=== PATIENT | male | born 1995 | race Caucasian/White ===

== ENCOUNTER 2024-08-16 17:45 | Emergency (ER) | payer SELFPAY ==
[2024-08-16 17:59] VITALS: BP 116/74; PULSE 100; TEMP 36.6; O2SAT 98; BMI 30.9
[2024-08-16 18:08] VITALS: PULSE 98
--- NOTE | 2024-08-16 18:31 | ECG_ITS ---
The 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
[2024-08-16 20:34] VITALS: O2SAT 96
[2024-08-16 20:35] VITALS: BP 126/74; PULSE 101; TEMP 37.2; O2SAT 96
--- NOTE | 2024-08-16 20:36 | ED_ITS ---
HPI - Chest Pain General Chief Complaint: Chest Pain Stated Complaint: chest pain Time Seen by Provider: 08/16/24 19:14 Source: patient Mode of arrival: walk-in History of Present Illness HPI narrative: This 29-year-old male, non-smoker presents for evaluation of pain in both lower anterior rib cage areas that wraps around into his back associated with exertional dyspnea, he also has left upper quadrant abdominal pain. He has had 2 episodes of vomiting today. He has had some chills and sweats. He denies any sore throat or runny nose. Patient states that short of breath was so bad earlier today that he had to just stop walking. He denies any dizziness or syncope. He states he feels very fatigued. His bones ache. He has not had any diarrhea. Related Data Home Medications ?Medication ?Instructions ?Recorded ?Confirmed venlafaxine 75 mg capsule,extended mg PO 08/16/24 release 24 hr Allergies Allergy/AdvReac Type Severity Reaction Status Date / Time No Known Drug Allergies Allergy Verified 08/16/24 17:59 Review of Systems ROS Status of ROS 10 or more systems reviewed and unremark able except as noted in history and below PFSH PFSH Social History Little interest or pleasure in doing things: not at all Feeling down, depressed, or hopeless: not at all Exam Narrative Exam Narrative: Vital signs and Nursing Notes reviewed: Patient is afebrile with normal pulse, normal blood pressure, he is not hypoxic with pulse ox of 98% on room air General: Well-appearing adult male, he is awake, alert, oriented, no acute distress, lying comfortably on the stretcher HEENT: Normocephalic atraumatic, mucous membranes are moist and pink, eyes are clear, normal conjunctiva, vision is grossly intact, posterior pharynx is normal in appearance. Neck: Supple, no meningeal signs, Chest: Lungs are clear to auscultation with good air entry, there is no wheezing rhonchi or rales appreciated no accessory muscle use, patient is speaking in complete sentences-no chest wall tenderness to palpation CVS: Regular rate and rhythm S1-S2, no murmurs rubs or gallops, pulses are brisk and equal bilaterally ABD: Soft, nondistended, nontender, no rebound guarding or rigidity, bowel sounds are normal, no pulsatile masses appreciated Extremities: Moving all extremities, no lower extremity tenderness or swelling noted, negative Homans' sign, pulses are brisk and equal bilaterally Skin: Normal in appearance without rash,pallor, petechiae or purpura Neuro: No focal deficits Constitutional Vital Signs, click to edit/add: Last Vital Signs Temp 99.0 F 08/16/24 20:35 Pulse 101 H 08/16/24 20:35 Resp 20 08/16/24 20:35 BP 126/74 08/16/24 20:35 Pulse Ox 96 08/16/24 20:35 O2 Del Method Room Air 08/16/24 20:35 Course Vital Signs Vital signs: Vital Signs Temperature 97.8 F 08/16/24 17:59 Pulse Rate 100 H 08/16/24 17:59 Respiratory Rate 16 08/16/24 17:59 Blood Pressure 116/74 08/16/24 17:59 Pulse Oximetry 98 08/16/24 17:59 Oxygen Delivery Method Room Air 08/16/24 17:59 Temperature 99.0 F 08/16/24 20:35 Pulse Rate 101 H 08/16/24 20:35 Respiratory Rate 20 08/16/24 20:35 Blood Pressure 126/74 08/16/24 20:35 Pulse Oximetry 96 08/16/24 20:35 Oxygen Delivery Method Room Air 08/16/24 20:35 MDM - Chest Pain MDM Narrative Medical decision making narrative: This 29-year-old male, non-smoker presents for evaluation of bilateral lower rib cage pain which is worse on the right with exertional dyspnea, chills, nausea and 1 episode of vomiting starting earlier today. He denies any specific abdominal pain. He has not had any diarrhea. He denies any dizziness or syn cope. His temperature upon arrival was 99 with a pulse of 101, blood pressure was stable. His physical exam is benign. His lungs are clear, abdomen is soft and nontender. There is no flank pain or urinary symptoms. An IV is placed and he was medicated with IV fluids Toradol and Zofran. His pain improved somewhat and he was given an additional dose of Tylenol. His nausea resolved. An EKG do ne upon arrival is a sinus tachycardia at 101 bpm. Cardiac workup was ordered. He has a normal troponin and D-dimer. He has a normal white count and hemoglobin. Electrolytes are normal. He is negative for COVID-19 and influenza. Two-view chest x-ray was ordered and is reviewed by radiology and is negative for acute findings. The results of his labs and x-ray were discussed with him. Clinically I feel like he has a flulike illness/viral syndrome with bodyaches, fatigue, shortness of breath and nausea with 1 episode of vomiting. This was discussed with him. He will be discharged home with 2 [place] to help him sleep due to his body aches at this time and a dose of Zofran and a prescription for Zofran and ibuprofen as well as a note for work for the next several days. He was encouraged drink plenty of fluids and return to the emergency department for worsening symptoms or any concerns. Medical Records Data Medical records narrative: [place] [address] XRay Report Signed Patient: FREDIS ZACARIAS MR#: [id number] : 1995 Acct:[id number] Age/Sex: 29 / M ADM Date: 08/16/24 Loc: ER Attending Dr: Ordering Physician: Aileen Alfaro Date of Service: 08/16/24 Procedure(s): XR chest 2V Accession Number(s): [id number] cc: VANDANA FAUSTIN; Aileen Alfaro~ The [address] [address] Patient Name: FREDIS ZACARIAS MRN: [id number] date: 1995 Sex: M Assigned Patient Location: ER Current Patient Location: ER Accession/Order Number: [id number] Exam Date: 08/16/2024 21:48 Report Date: 08/16/2024 22:23 At the request of: AILEEN ALFARO Procedure: XR chest 2V EXAMINATION: XR chest 2V HISTORY: SOB COMPARISON: No relevant comparison available. FINDINGS: LUNGS: No significant pulmonary parenchymal abnormalities. VASCULATURE: No increased pulmonary vasculature. PLEURA: No pneumothorax, effusion, or pleural thickening. CARDIAC: No cardiomegaly or cardiac silhouette abnormality. MEDIASTINUM: No visible mass or adenopathy. BONES: No fracture or visible bone lesion. OTHER: Negative. XR/XR chest 2V IMPRESSION: 1. No acute cardiopulmonary process. Electronically authenticated by: REBECCA CORBIN Date: 08/16/2024 22:23 Lab Data Attestation: I reviewed the patient's lab results. Labs: Lab Results 08/16/24 08/16/24 Range/Units 20:30 20:45 WBC 10.8 (4.0-11.0) 10^3/uL RBC 5.46 (4.70-6.10) 10^6/uL Hgb 16.3 (14.0-18.0) g/dL Hct 48.7 (42.0-54.0) % MCV 89.2 (80.0-94.0) fL MCH 29.9 (25.9-34.0) pg MCHC 33.5 (29.9-35.2) g/dL RDW 12.7 (11.0-15.0) % Plt Count 246 (150-450) 10^3/uL MPV 9.3 L (9.5-13.5) fL Seg Neuts % (Manual) 92.0 H (43.0-75.0) Lymphocytes % (Manual) 5.0 L (20.5-60.0) % Monocytes % (Manual) 4.0 (1.7-12.0) % Eosinophils % (Manual) 0.0 L (0.9-7.0) % Basophils % (Manual) 0.0 L (0.2-2.0) % Neutrophils # (Manual) 9.93 H (1.4-6.5) 10^3/uL Lymphocytes # (Manual) 0.54 L (1.20-3.80) 10^3/uL Monocytes # (Manual) 0.43 (0.30-0.80) 10^3/uL Eosinophils # (Manual) 0.00 (0.00-0.70) 10^3/uL Basophils # (Manual) 0.00 (0.00-0.10) 10^3/uL D-Dimer <0.19 (<=0.59) mg/L FEU Sodium 141 (136-145) mmol/L Potassium 3.7 (3.5-5.1) mmol/L Chloride 104 (98-107) mmol/L Carbon Dioxide 30.0 (21.0-32.0) mmol/L Anion Gap 10.7 BUN 14.0 (7.0-18.0) mg/dL Creatinine 1.05 (0.70-1.30) mg/dL Est GFR ( Amer) >60 (>=60 mL/min/1.73m^2) Est GFR (Non-Af Amer) >60 (>=60 mL/min/1.73m^2) BUN/Creatinine Ratio 13.3 Glucose 89 (74-106) mg/dL Calcium 8.8 (8.5-10.1) mg/dL Total Bilirubin 0.8 (0.2-1.0) mg/dL AST 16 (15-37) U/L ALT 26 (16-63) U/L Alkaline Phosphatase 60 (46-116) U/L Total Creatine Kinase 111 (39-308) U/L Troponin I High Sens <4.0 L (4.0-76.1) pg/mL NT-Pro-B Natriuret Pep 14.0 (<=450.0) pg/mL Total Protein 7.7 (6.4-8.2) g/dL Albumin 4.3 (3.4-5.0) g/dL Globulin 3.4 g/dL Albumin/Globulin Ratio 1.3 Lipase 28.0 (16.0-77.0) U/L Influenza Type A Ag Negative Influenza Type B Ag Negative SARS-CoV-2 Ag (CV2AG) Negative (NEGATIVE) ECG Data Attestation: I personally reviewed and interpreted this ECG as follows: (Sinus tachycardia 101 bpm, left anterior hemiblock, Q waves noted in leads III and aVF, no acute ST segment elevation or T wave inversion) Heart Score History: Slightly/Non-Suspicious ECG: Normal Age: <45 years Risk Factors: No Risk Factors Troponin: <Normal Limit Total Heart Score Recommendations & Risks:: 0 Discharge Plan Discharge Chief Complaint: Chest Pain Clinical Impression: Atypical chest pain, Acute viral syndrome Patient Disposition: Home, Self-Care Time of Disposition Decision: 22:40 Condition: Good Prescriptions / Home Meds: No Action venlafaxine 75 mg capsule,extended release 24hr PO Print Language: Slovenian Instructions: Viral Syndrome (ED), Noncardiac Chest Pain (ED) Referrals: VANDANA FAUSTIN [Primary Care Provider] - 1 week
[2024-08-16 20:41] LABS: Hematocrit 48.7 % (42.0-54.0); Hemoglobin 16.3 g/dL (14.0-18.0); Mean Corpuscular HGB Conc 33.5 g/dL (29.9-35.2); Mean Corpuscular Hemoglobin 29.9 pg (25.9-34.0); Mean Corpuscular Volume 89.2 fL (80.0-94.0); Mean Platelet Volume 9.3 fL (9.5-13.5); Platelet Count 246 10^3/uL (150-450); Red Blood Count 5.46 10^6/uL (4.70-6.10); Red Cell Distribution Width 12.7 % (11.0-15.0); White Blood Count 10.8 10^3/uL (4.0-11.0)
[2024-08-16 21:05] LABS: Alanine Aminotransferase 26 U/L (16-63); Albumin Globulin Ratio 1.3; Albumin Level 4.3 g/dL (3.4-5.0); Alkaline Phosphatase 60 U/L (46-116); Anion Gap 10.7; Aspartate Amino Transferase 16 U/L (15-37); BUN Creatinine Ratio 13.3; Bilirubin Total 0.8 mg/dL (0.2-1.0); Calcium 8.8 mg/dL (8.5-10.1); Chloride 104 mmol/L (98-107); Estimated GFR (African America >60 (>=60 mL/min/1.73m^2); Estimated GFR (Non-African Ame >60 (>=60 mL/min/1.73m^2); Globulin 3.4 g/dL; Glucose 89 mg/dL (74-106); Potassium 3.7 mmol/L (3.5-5.1); Sodium 141 mmol/L (136-145); Total Protein 7.7 g/dL (6.4-8.2)
[2024-08-16 21:06] LABS: D Dimer <0.19 mg/L FEU (<=0.59)
[2024-08-16] MEDS: 0.9 % SODIUM CHLORIDE 1,000 ML 1000 ML IV (21:08)
[2024-08-16] MEDS: KETOROLAC TROMETHAMINE 30 MG/ML VIAL IVP (21:08)
[2024-08-16] MEDS: ONDANSETRON PF 4 MG/2 ML VIAL IV (21:09)
[2024-08-16 21:11] LABS: Influenza Virus A Antigen Negative; Influenza Virus B Antigen Negative; Internal Control Within Normal Limits; SARS-CoV-2 Ag NEGATIVE (NEGATIVE)
[2024-08-16 21:12] LABS: Troponin I High Sensitivity <4.0 pg/mL (4.0-76.1)
[2024-08-16 21:13] VITALS: PULSE 77
[2024-08-16 21:14] LABS: Lymphocytes Absolute Manual 0.54 10^3/uL (1.20-3.80); Monocytes Absolute Manual 0.43 10^3/uL (0.30-0.80); Segmented Neut Absolute Manual 9.93 10^3/uL (1.4-6.5)
[2024-08-16 21:15] LABS: Creatine Kinase 111 U/L (39-308)
--- NOTE | 2024-08-16 21:17 | XR_ITS ---
The [address] [address] Patient Name: FREDIS ZACARIAS MRN: [id number] date: 1995 Sex: M Assigned Patient Location: ER Current Patient Location: ER Accession/Order Number: [id number] Exam Date: 08/16/2024 21:48 Report Date: 08/16/2024 22:23 At the request of: PARAM MARKER Procedure: XR chest 2V EXAMINATION: XR chest 2V HISTORY: SOB COMPARISON: No relevant comparison available. FINDINGS: LUNGS: No significant pulmonary parenchymal abnormalities. VASCULATURE: No increased pulmonary vasculature. PLEURA: No pneumothorax, effusion, or pleural thickening. CARDIAC: No cardiomegaly or cardiac silhouette abnormality. MEDIASTINUM: No visible mass or adenopathy. BONES: No fracture or visible bone lesion. OTHER: Negative. XR/XR chest 2V IMPRESSION: 1. No acute cardiopulmonary process. Electronically authenticated by: REBECCA CORBIN Date: 08/16/2024 22:23
[2024-08-16] MEDS: ACETAMINOPHEN 325 MG TABLET 650 MG PO (22:15)
[2024-08-16] MEDS: HYDROCODONE/ACET 5-325 MG TABLET 2 TAB PO (23:01)
[2024-08-16] MEDS: ONDANSETRON 4 MG RAPDIS TABLET SL (23:01)
== END 2024-08-16 23:08 | disposition home or self-care (01) ==
PROVIDERS: Emergency Provider Emergency Medicine
DX: R07.89 Other chest pain (principal); B34.9 Viral infection, unspecified; R06.02 Shortness of breath
CPT/HCPCS: 36415; 71046; 80053; 82550; 83690; 83880; 84484; 85007; 85027; 85378; 87804; 87811; 93005; 96361; 96374; 96375; 99285; J1885; J2405; Q0162

== ENCOUNTER 2025-05-04 07:32 | Emergency (ER) | payer SELFPAY ==
[2025-05-04 07:38] VITALS: BP 122/60; PULSE 86; TEMP 36.8; O2SAT 97; BMI 31.9
--- OUTSIDE RECORDS SUMMARY | 2025-05-04 07:39 | XMS_ITS | Clinical Summary ---
Author Organization [facility] Healthcare Address [address] [place] [address] Care Team Providers Care Olive Grader Name Role Phone Windy Jacome MD Primary Care Provider [phone] Florinda Garzon DAY CARE HOME PROVIDER Unavailable [phone] Allergies No known active allergies Medications venlafaxine XR (Effexor XR) 75 MG 24 hr capsuleIndicati ons:Adjustment disorder with mixed anxiety and depressed mood Take 1 capsule (75 mg) by mouth Daily Do not crush or chew. 90 capsule 3 03/29/2025 Active Active Problems Problem Noted Date Diagnosed Date PTSD (post-traumatic stress disorder) 11/27/2023 Mixed obsessional thoughts and acts 11/27/2023 Adjustment disorder with mixed anxiety and depre ssed mood 11/20/2023 Encounters Date Type Department Care Team Description 03/30/2025 Results Follow-Up [facility] [address] [place] [address] Florinda Garzon NP Comprehensive metabolic panel, Lipid panel 03/29/2025 3:30 PM EDT Office Visit [facility] [address] [facility] [address] Florinda Garzon NP Adjustment disorder with mixed anxiety and depressed mood (Primary Dx); Mixed obsessional thoughts and acts ; PTSD (post-traumatic stress disorder) ; Anxiety; Encounter for lipid screening for cardiovascular disease; Encounter for wellness examination in adult 03/29/2025 Bamboo flowsheet [facility] [address] [place] [address] Florinda Garzon NP 03/29/2025 Travel 03/22/2025 Refill [facility] [address] [place] [address] Windy Jacome MD Adjustment disorder with mixed anxiety and depressed mood 03/20/2025 Refill [facility] [address] [place] [address] Florinda Garzon NP Adjustment disorder with mixed anxiety and depressed mood from Last 3 Months Family History Medical History Relation Name Comments Heart disease Father Hypertension Father Relation Name Status Comments Father Alive Mother Alive Sister Alive Social History Tobacco Use Types Packs/Day Years Used Date Smoking Tobacco: Never Smokeless Tobacco: Never Alcohol Use Standard Drinks/Week Comments Never 0 (1 standard drink = 0.6 oz pur e alcohol) PHQ-2 Answer Date Recorded Patient Health Questionnaire-2 Score 1 03/29/2025 Sex and Gender Information Value Date Recorded Sex Assigned at Not on file Legal Sex Male 4:38 PM EST Gender Identity Not on file Sexual Orientation Not on file Last Filed Vital Signs Vital Sign Reading Time Taken Comments Blood Pressure 116/78 03/29/2025 3:24 PM EDT Pulse 73 11/28/2023 2:00 PM EDT Temperature 36.3 C (97.3 F) 03/29/2025 3:24 PM EDT Respiratory Rate - - Oxygen Saturation 95% 11/28/2023 2:00 PM EDT Inhaled Oxygen Concentration - - Weight 110 kg (242 lb) 03/29/2025 3:24 PM EDT Height 185.4 cm (6' 1 ) 11/28/2023 2:00 PM EDT Body Mass Index 31.93 11/28/2023 2:00 PM EDT Plan of Treatment Health Maintenance Due Date Last Done Comments Influenza Vaccine (#1) 2025 05/08/2021, 2018 Procedures Procedure Name Priority Date/Time Associated Diagnosis Comments LIPID PANEL Routine 03/29/2025 4:15 PM EDT Encounter for lipid screening for cardiovascular disease COMPREHENSIVE METABOLIC PANEL Routine 03/29/2025 4:15 PM EDT Adjustment disorder with mixed anxiety and depressed mood PTSD (post-traumatic stress disorder) from Last 3 Months Results * (ABNORMAL) Lipid panel (03/29/2025 4:15 PM EDT) CHOLESTEROL, TOTAL 134 <200 mg/dL [facility] HDL CHOLESTEROL 38(L) > OR = 40 mg/dL [facility] TRIGLYCERIDES 78 <150 mg/dL [facility] LDL CHOLESTEROL 80 mg/dL (calc) [facility] Comment: Reference range: <100 Desirable range <100 mg/dL for primary prevention; <70 mg/dL for patients with CHD or diabetic patients with > or = 2 CHD risk factors. LDL-C is now calculated using the Inderjit calculation, which is a validated novel method providing better accuracy than the Friedewald equation in the estimation of LDL-C. Fredi SS et al. LYNN. 2013;310(19): 2942-4447 (http://education.[employer].Cintric/faq/QWT699) CHOL/HDLC RATIO 3.5 <5.0 (calc) [facility] NON HDL CHOLESTEROL 96 <130 mg/dL (calc) [facility] Comment: For patients with diabetes plus 1 major ASCVD risk factor, treating to a non-HDL-C goal of <100 mg/dL (LDL-C of <70 mg/dL) is considered a therapeutic option. Blood Venous blood specimen / Unknown 03/29/2025 4:15 PM EDT 03/29/2025 4:15 PM EDT Narrative Resulting Agency Comment Performing Organization Information Site ID: QPT Name: [facility] Address: [address] [place] [address], [address] [place] [id number] Director: Ralph Agarwal MD us Florinda Garzon NP LAB BLOOD ORDERABLES Fi nal Result [facility] * Comprehensive metabolic panel (03/29/2025 4:15 PM EDT) Glucose 82 65 - 99 mg/dL [facility] Comment: Fasting reference interval BUN 11 7 - 25 mg/dL [facility] Creatinine 0.94 0.60 - 1.26 mg/dL [facility] EGFR 111 > OR = 60 mL/min/1. 73m2 [facility] BUN/CREATININE RATIO SEE NOTE: 6 - 22 (calc) [facility] Comment: Not Reported: BUN and Creatinine are within reference range. Sodium 141 135 - 146 mmol/L [facility] Potassium, Bld 4.0 3.5 - 5.3 mmol/L [facility] Chloride 105 98 - 110 mmol/L [facility] Carbon Dioxide 26 20 - 32 mmol/L [facility] Calcium 9.3 8.6 - 10.3 mg/dL [facility] PROTEIN, TOTAL 7.1 6.1 - 8.1 g/dL [facility] ALBUMIN 4.8 3.6 - 5.1 g/dL [facility] GLOBULIN 2.3 1.9 - 3.7 g/dL (calc) [facility] ALBUMIN/GLOBULIN RATIO 2.1 1.0 - 2.5 (calc) [facility] BILIRUBIN, TOTAL 0.5 0.2 - 1.2 mg/dL [facility] ALKALINE PHOSPHATASE 46 36 - 130 U/L [facility] AST 15 10 - 40 U/L [facility] ALT 18 9 - 46 U/L [facility] Blood Venous blood specimen / Unknown 03/29/2025 4:15 PM EDT 03/29/2025 4:15 PM EDT Narrative Resulting Agency Comment Performing Organization Information Site ID: QPT Name: [facility] Address: [address] [place] [address], [address] [place] [phone] Director: Ralph Agarwal MD Florinda Garzon DAY CARE HOME PROVIDER LAB BLOOD ORDERABLES Fi nal Result Performing Organization Address [facility] Co de Phone Number [facility] from Last 3 Months Insurance [employer] Care Teams Olive Grader Relationship Specialty Start Date End Date Windy Jacome MD [address] [facility] [place] [address] PCP - General Family Medicine 03/08/24 Florinda Garzon NP [address] [facility] [place] [address] Nurse Practitioner Family Medicine 03/08/24
--- OUTSIDE RECORDS SUMMARY | 2025-05-04 07:39 | XMS_ITS | Encounter Summary ---
Author Organization [facility] Healthcare Address [address] [place] [place] [address] Care Team Providers Care Cooperative Education Director Name Role Phone Windy Jacome MD Primary Care Provider [phone] Florinda Garzon SENIOR LIVING SALES COUNSELOR Unavailable [phone] Reason for Visit * Reason Comments Med Refill Encounter Details Date Type Department Care Team (Late st Contact Info) Description 03/20/2025 Refill [facility] [address] [place] [address] Florinda Garzon NP [address] [place], [place] [id number] Adjustment disorder with mixed anxiety and depressed mood Social History Tobacco Use Types Packs/Day Years Used Date Smoking Tobacco: Never Smokeless Tobacco: Former Alcohol Use Standard Drinks/Week Comments Never 0 (1 standard drink = 0.6 oz pur e alcohol) PHQ-2 Answer Date Recorded Patient Health Questionnaire-2 Score 1 11/28/2023 Sex and Gender Information Value Date Recorded Sex Assigned at Not on file Legal Sex Male 4:38 PM EST Gender Identity Not on file Sexual Orientation Not on file documented as of this encounter Plan of Treatment Not on file documented as of this encounter Visit Diagnoses Diagnosis Adjustment disorder with mixed anxiety and depressed mood documented in this encounter Additional Health Concerns Assessment Noted Time PHQ-9 Depression Total Score: 4 11/28/19 24 2:05 PM EDT documented as of this encounter Care Teams Cooperative Education Director Relationship Specialty Start Date End Date Windy Jacome MD [address] [place] [address] PCP - General Family Medicine 03/08/24 Florinda Garzon NP [address] [place] [address] Nurse Practitioner Family Medicine 03/08/24 documented as of this encounter
--- OUTSIDE RECORDS SUMMARY | 2025-05-04 07:39 | XMS_ITS | Clinical Summary ---
Author Organization [facility] tem Address [id number] [address] [place] [address] Care Team Providers Care Appraisal Technician Name Role Phone No Pcp, No Pcp Primary Care Provider Unavailabl e Allergies Active Allergy Reactions Criticality Noted Date Comments Codeine 08/29/2017 Medications No known medications Social History Tobacco Use Types Packs/Day Years Used Date Smoking Tobacco: Never Smokeless Tobacco: Never Childcare Answer Date Recorded Childcare Unknown 01/13/2019 Employment Answer Date Recorded Employment Unknown 01/13/2019 Purpose - Life Answer Date Recorded Purpose and direction in life Unknown Sex and Gender Information Value Date Recorded Sex Assigned at Not on file Legal Sex Male 11:50 AM EDT Gender Identity Not on file Sexual Orientation Not on file Last Filed Vital Signs Vital Sign Reading Time Taken Comments Blood Pressure 156/87 07/31/2021 3:06 PM EST Pulse 83 07/31/2021 3:06 PM EST Temperature 36.9 C (98.4 F) 07/31/2021 3:06 PM EST Respiratory Rate 18 07/31/2021 3:06 PM EST Oxygen Saturation 98% 07/31/2021 3:06 PM EST Inhaled Oxygen Concentration - - Weight 113.4 kg (250 lb) 07/31/2021 3:06 PM EST Height 185.4 cm (6' 1 ) 07/31/2021 3:06 PM EST Body Mass Index 32.98 07/31/2021 3:06 PM EST Plan of Treatment Not on file Medical Devices [place] [address] [place] [address] [employer] Care Teams Appraisal Technician Relationship Specialty Start Date End Date No Pcp, [place] [address] PCP - General Family Medicine 08/11/17
--- NOTE | 2025-05-04 08:48 | ED.GENADUL1 ---
HPI HPI - General Adult General Chief complaint: Skin/Abscess/Foreign Body Stated complaint: FACIAL SWELLING Time Seen by Provider: 05/04/25 08:31 Source: patient Mode of arrival: walk-in Limitations: no limitations History of Present Illness HPI narrative: The patient is a 30-year-old male with no significant known past medical history, is coming to the ER after he had a pimple in the middle of his face between 2 eyebrows apparently he thought that he have some pus in it and over the last few days he tried poking into it and a needle at work, the patient denies any fever chills or any other concern but he noted that he woke up this morning noticing some facial swelling, patient denies any headache nausea vomiting fever or any other concern He also denies any head trauma The patient have no eye pain no blurry vision Related Data Home Medications ?Medication ?Instructions ?Recorded ?Confirmed venlafaxine 75 mg capsule,extended 75 mg PO DAILY 08/16/24 05/04/25 release 24 hr Previous Rx's ?Medication ?Instructions ?Recorded amoxicillin 500 mg capsule 500 mg PO TID 10 days #30 caps 05/04/25 doxycycline hyclate 100 mg tablet 100 mg PO BID 7 days #14 tabs 05/04/25 Allergies Allergy/AdvReac Type Severity Reaction Status Date / Time No Known Drug Allergies Allergy Verified 05/04/25 07:37 Opioid HPI Opioid Management Most Recent Opioid Data: Last Pain Scale 6 Today, 07:40 Review of Systems ROS Status of ROS 10 or more systems reviewed and unremarkable except as noted in history and below PFSH PFSH Social History Little interest or pleasure in doing things: not at all Feeling down, depressed, or hopeless: not at all Exam Narrative Exam Narrative: Nurses notes and vital signs reviewed and patient is not hypoxic. General: Well-appearing and in no apparent distress. Skin: Warm, dry, no pallor noted. No rash. Head: Normocephalic, atraumatic. Face; the patient have a mild edema at the area in between the 2 eyebrows with a small 1 mm area of entrance with no abscess noted no fluctuation, there is skin induration in that area and the surrounding area shows mild erythema no hotness, the patient also have a mild edema of the left upper eyelid there is no limitation movement of the eyes, eye itself shows no acute pathology the conjunctiva is normal pupils are reactive, Neurological: A&O x4. No cranial nerve dysfunction observed. No truncal ataxia. Moves all extremities. Sensation intact. Psychiatric: Cooperative and interactive. Normal mood and affect. Constitutional Vital Signs, click to edit/add: Last Vital Signs Temp 98.2 F 05/04/25 07:38 Pulse 86 05/04/25 07:38 Resp 16 05/04/25 07:38 BP 122/60 05/04/25 07:38 Pulse Ox 97 05/04/25 07:38 O2 Del Method Room Air 05/04/25 07:38 Course Vital Signs Vital signs: Vital Signs Temperature 98.2 F 05/04/25 07:38 Pulse Rate 86 05/04/25 07:38 Respiratory Rate 16 05/04/25 07:38 Blood Pressure 122/60 05/04/25 07:38 Pulse Oximetry 97 05/04/25 07:38 Oxygen Delivery Method Room Air 05/04/25 07:38 Temperature 98.2 F 05/04/25 07:38 Pulse Rate 86 05/04/25 07:38 Respiratory Rate 16 05/04/25 07:38 Blood Pressure 122/60 05/04/25 07:38 Pulse Oximetry 97 05/04/25 07:38 Oxygen Delivery Method Room Air 05/04/25 07:38 Medical Decision Making MDM Narrative Medical decision making narrative: The patient presenting to us with a mild cellulitis right now the patient have no risk factors for progression of the disease especially that he is not diabetic The patient also have a tetanus booster provided in the ER because he did use a needle when he thought that it might need some drainage I did explain to the patient to avoid any irritation to the area and also monitor for any fever chills or any headache patient to come back to the ER right away he was started on amoxicillin and doxycycline with instructions strictly that he need to observe improvement within the next 24 to 48 hours and in case of any progression the patient to come back to the ER I did explain to him the fact that it is in the face right now mild cellulitis and progression will cause him to have further complication The patient understands and I did explain to him as well that he needs to wearing the cap that he usually wears to avoid irritation to the area The patient is to follow up with primary care physician in next 2-3 days or to return to the emergency department should any of the signs or symptoms worsen or new symptoms develop. The patient agrees with the following Diagnosis and Treatment plan and the patient will be discharged home. Discharge Plan Discharge Chief Complaint: Skin/Abscess/Foreign Body Clinical Impression: Cellulitis of face Patient Disposition: Home, Self-Care Time of Disposition Decision: 08:45 Condition: Good Prescriptions / Home Meds: New amoxicillin 500 mg capsule 500 mg PO TID 10 Days Qty: 30 0RF doxycycline hyclate 100 mg tablet 100 mg PO BID 7 Days Qty: 14 0RF No Action venlafaxine 75 mg capsule,extended release 24hr 75 mg PO DAILY Print Language: [place] Instructions: Cellulitis (ED) Additional Instructions: Please come back to the ER in case of worsening of symptoms including fever or headache or any increase in redness Referrals: VANDANA FAUSTIN [Primary Care Provider] - 1 week Discharge Date/Time: 05/04/25 09:04
[2025-05-04] MEDS: DIPHTH,PERTUSS(ACELL),TET VAC 0.5 ML SYRINGE IM (08:56)
[2025-05-04] MEDS: AMOXICILLIN/POT CLAV 875-125 MG TABLET 1 TAB PO (08:56)
== END 2025-05-04 09:04 | disposition home or self-care (01) ==
PROVIDERS: Emergency Provider Emergency Medicine
DX: L03.211 Cellulitis of face (principal); Z23 Encounter for immunization
CPT/HCPCS: 90471; 90715; 99284